=== PATIENT | male | born 1975 | race Caucasian/White ===

== ENCOUNTER 2023-09-25 11:03 | Emergency (ER) | payer MEDICAID, OTHER ==
[2023-09-25 11:40] VITALS: O2SAT 99
--- NOTE | 2023-09-25 13:03 | ED Physician Documentation ---
History of Present Illness - Stated complaint Stated Complaint: RT LEG REACTION/RASH - Chief complaint Chief Complaint: Wound - History obtained from History obtained from: Patient - History of Present Illness Timing: Today Pain level max: 0 Pain level now: 0 - Additonal information Additional information: 48-year-old male presents to the emergency department stating that he was over in [facility] and was around ticks, does not recall any tick bites, but states that today he noticed a red target rash on the right inner thigh. Concerned about Lyme disease. Nothing makes it better or worse. No fevers or chills. No cough or congestion. Has not had similar symptoms previously. Review of Systems Constitutional: denies: Fever, Chills Skin: denies: Rash PD PAST MEDICAL HISTORY - Past Medical History Past Medical History: Yes Cardiovascular: Hypertension Neuro: Seizure disorder Psych: Depression, Anxiety, Bipolar disorder - Past Surgical History Past Surgical History: Yes General: Other Ortho: Other - Present Medications Home Medications: Ambulatory Orders Medication Instructions Recorded Confirmed Doxycycline [Vibramycin] 100 mg PO BID #20 tablet 09/25/23 - Allergies Allergies/Adverse Reactions: Allergies Allergy/AdvReac Type Severity Reaction Status Date / Time lorazepam AdvReac Nausea Verified 09/25/23 11:21 phenytoin [From Dilantin] AdvReac Unknown Verified 09/25/23 11:21 venlafaxine [From Effexor] AdvReac Unknown Verified 09/25/23 11:21 - Social History Does the pt smoke?: No Smoking Status: Never smoker PD ED PE NORMAL - Vitals Vital signs reviewed: Yes - General General: Alert and oriented X 3, No acute distress - HEENT HEENT: Moist mucous membranes - Neck Neck: Supple, no meningeal sign - Cardiac Cardiac: RRR - Respiratory Respiratory: No respiratory distress, Clear bilaterally - Derm Derm: Warm and dry - Extremities Extremities: Other (Target lesion to the R inner thigh approx 5cm in diameter) - Neuro Neuro: Alert and oriented X 3 Results - Vitals Vitals: Vital Signs - 24 hr 09/25/23 11:17 Temperature 36.5 C Heart Rate 91 Respiratory 16 Rate Blood Pressure 143/92 H O2 Saturation 99 PD Medical Decision Making - ED course Complexity details: considered differential, d/w patient ED course: 48-year-old male with a rash consistent with erythema migrans to the right medial thigh. No signs of induration. No pustules. No evidence of abscess. No streaking. Will place on doxycycline. Patient counseled regarding signs and symptoms for which I believe and urgent re-evaluation would be necessary. Patient with good understanding of and agreement to plan and is comfortable going home at this time This document was made in part using voice recognition software. While efforts are made to proofread this document, sound alike and grammatical errors may occur. Departure - Departure Disposition: 01 Home, Self Care Clinical Impression: Erythema migrans (Lyme disease) Condition: Good Instructions: ED Lyme Disease Follow-Up: your,doctor in 1 week [Other] Prescriptions: Doxycycline [Vibramycin] 100 mg PO BID #20 tablet Comments: Your prescription is sent to [facility] in [place]. It appears that you do have a rash known as erythema migrans, consistent with Lyme disease. Please take all antibiotics until gone. Please follow-up with your doctor for further care. Please return if you worsen. Forms: PCP List
[2023-09-25] MEDS: DOXYCYCLINE 100 MG TABLET PO STA (13:21)
[2023-09-25 13:27] VITALS: BP 140/88
== END 2023-09-25 13:23 | disposition home or self-care (01) ==
LOC: ED 11:03
DX: A69.20 Lyme disease, unspecified (principal); I10 Essential (primary) hypertension
CPT/HCPCS: 99283; A9270